=== PATIENT | male | born 1945 | race Caucasian/White ===

== ENCOUNTER 2019-03-17 15:59 | Inpatient (IN) | payer OTHER, BC ==
[~2019-03-17] VITALS: Ht 167.6 cm; Wt 70.8 kg
--- NOTE | 2019-03-17 15:59 | NUR ---
PATIENT BIBA TAKEN TO BED 10
--- NOTE | 2019-03-17 16:02 | NUR ---
DR. MEIER EVALUATING PATIENT AT BEDSIDE.
--- NOTE | 2019-03-17 16:16 | NUR ---
73M KAREN FROM [facility] C/O RESPIRATORY DISTRESS WITH ALTERED LEVEL OF CONCIOUSNESS, WARM TO TOUCH X TODAY. 80% SPO2 PRIOR TO ARRIVAL. PT BASELINE IS AOX1. UNRESPONSIVE AT PRESENTATION TO ED. EYE OPENING NONSPONTANEOUSLY. LABORED BREATHING, DIMINISHED LUNG SOUNDS. PT IS BEDBOUND. G-TUBE IN PLACE. PMH: SEE LIST MEDS: SEE LIST
--- NOTE | 2019-03-17 16:25 | NUR ---
RECIVED PT FROM EMR SOB DR MEIER AT BEDSIDE ORDERED BIPAP WITH SETTINGS CHARTED PLACED PT ON BIPAP PT BREAH SOUNDS PRESENT BILAT VERY DIMINISHEH WILL CONTINUE TO MONITOR PT
[2019-03-17] MEDS ORDERED: CEFEPIME 2,000 MG in DEXTROSE 5% 100 ML IV ONE (16:30)
[2019-03-17] MEDS ORDERED: VANCOMYCIN PER PHARMACY MC PRN ×2 (16:30→17:25)
[2019-03-17] MEDS ORDERED: ACETAMINOPHEN 650 MG SUPP RC ONE (16:30)
[2019-03-17] MEDS ORDERED: VANCOMYCIN 1GM/DEXT 5% PREMIX 200 ML IV ONE (16:30)
--- NOTE | 2019-03-17 16:32 | NUR ---
PER MACHINE LOAD CLERK POP SARMIENTO FOR GEOVANNY MEIER TO SIGN DNR
[2019-03-17] MEDS ORDERED: HYDROcodone/APAP 7.5/325 MG 1 TAB PO PRN (16:45)
[2019-03-17] MEDS ORDERED: ONDANSETRON 4 MG/2 ML VIAL IM/IVP PRN (16:45)
[2019-03-17] MEDS ORDERED: MORPHINE SULFATE 2 MG/ML SYR IVP PRN (16:45)
[2019-03-17] MEDS ORDERED: ACETAMINOPHEN 325 MG TAB PO PRN (16:45)
[2019-03-17] MEDS ORDERED: DOCUSATE SODIUM 100 MG GELCAP PO PRN (16:45)
--- NOTE | 2019-03-17 16:46 | NUR ---
LAB AT BEDSIDE DRAWING BLOOD CULTURE.
--- NOTE | 2019-03-17 16:55 | NUR ---
RT AT BEDSIDE
[2019-03-17] MEDS ORDERED: CEFEPIME 2,000 MG VIAL IV ONE (16:57)
[2019-03-17] MEDS ORDERED: VANCOMYCIN 1,000 MG VIAL ONE (16:57)
[2019-03-17] MEDS ORDERED: VANCOMYCIN 1,000 MG in DEXTROSE 5% 250 ML IV ONE (17:00)
[2019-03-17] MEDS ORDERED: VANCOMYCIN 1,000 MG in DEXTROSE 5% 250 ML IV SCH (17:00)
[2019-03-17 17:17] LABS: BASOPHILS % (AUTO) 0.2 % (0.0-2.0); EOSINOPHILS % (AUTO) 0.3 % (0.0-4.0); HEMATOCRIT 35.5 % (36-52); HEMOGLOBIN 11.4 g/dL (12.0-18.0); LYMPHOCYTES # (AUTO) 1.4 K/uL (2.0-11.5); LYMPHOCYTES % (AUTO) 10.1 % (20.5-51.1); MEAN CORPUSCULAR HEMOGLOBIN 29 pg (27-31); MEAN CORPUSCULAR HGB CONC 32 g/dL (33-37); MEAN CORPUSCULAR VOLUME 90.6 fL (80-94); MONOCYTES # (AUTO) 1.2 K/uL (0.8-1.0); MONOCYTES % (AUTO) 8.2 % (1.7-9.3); NEUTROPHILS # (AUTO) 11.6 K/uL (1.8-7.7); NEUTROPHILS % (AUTO) 81.2 % (42.2-75.2); PLATELET COUNT (AUTO) 118 K/uL (140-450); RED BLOOD CELL COUNT(AUTO) 3.92 MIL/uL (4.20-6.10); WHITE BLOOD COUNT (AUTO) 14.3 K/uL (4.8-10.8)
[2019-03-17 17:27] LABS: APPEARANCE,URINE CLEAR (CLEAR); BILIRUBIN,URINE NEGATIVE (NEGATIVE); BLOOD, URINE NEGATIVE (NEGATIVE); COLOR,URINE YELLOW (YELLOW); LEUKOCYTE ESTERASE ,URINE NEGATIVE (NEGATIVE); NITRITE, URINE NEGATIVE (NEGATIVE); UGLUCOSE NEGATIVE (NEGATIVE)
--- NOTE | 2019-03-17 17:39 | NUR ---
REPORT GIVEN TO ALEJANDRO WOLF FROM ICU. TRANSFER OF CARE AT THIS TIME. Addendum: 03/17/19 at 1812 by MEGAN ZOE.
[2019-03-17 17:41] LABS: PROTHROMBIN TIME 9.9 secs (10.8-13.4)
[2019-03-17 17:44] LABS: BARBITURATE, URINE NEG. ng/ml (NEG <=200); BENZODIAZEPINE, URINE NEG. ng/mL (NEG <=200); CANNABINOID, URINE NEG. ng/mL (NEG <=50); COCAINE, URINE NEG. ng/mL (NEG <=300); OPIATE, URINE NEG. ng/mL (NEG <=2000); PHENCYCLIDINE SCREEN,URINE NEG. ng/mL (NEG <=25)
[2019-03-17 17:45] LABS: ALBUMIN 3.1 g/dL (3.4-5.0); ANION GAP 10.4 (8-16); ASPARTATE AMINOTRANSFERASE 24 U/L (15-37); CHLORIDE 103 mmol/L (98-107); CREATININE 0.7 mg/dL (0.7-1.3); GLUCOSE 118 mg/dL (74-106); POTASSIUM 4.4 mmol/L (3.5-5.1); SODIUM SERUM 139 mmol/L (136-145); TOTAL BILIRUBIN 0.4 mg/dL (0.0-1.0); UREA NITROGEN, BLOOD 26 mg/dL (7-18)
[2019-03-17] MEDS ORDERED: ALBUTEROL SULFATE/IPRATROPIU 3 ML SOL IH PRN (17:45)
--- NOTE | 2019-03-17 17:47 | NUR ---
PATIENT TAKEN BY ICU NURSES
[2019-03-17] MEDS ORDERED: FERR325E14 GT (17:51)
[2019-03-17] MEDS ORDERED: CLON0.5T GT (17:51)
[2019-03-17] MEDS ORDERED: CLOP75TA26 GT (17:51)
[2019-03-17] MEDS ORDERED: CARB1TAB37 PO (17:51)
[2019-03-17] MEDS ORDERED: PANT40EC PO (17:51)
[2019-03-17] MEDS ORDERED: ATOR10TA GT (17:51)
[2019-03-17 17:58] LABS: FREE T4 (FREE THYROXINE) 1.36 ng/dL (0.76-1.46); MAGNESIUM 1.4 mg/dL (1.8-2.4); PHOSPHORUS 3.6 mg/dL (2.5-4.9)
[2019-03-17 18:00] VITALS: BP 160/23
[2019-03-17] MEDS ORDERED: Z-GUARD PASTE TP PRN (18:00)
[2019-03-17] MEDS ORDERED: methylPREDNISolone SS 125 MG/2 ML VIAL IVP SCH (18:15)
--- NOTE | 2019-03-17 18:16 | NUR ---
RECEIVED PATIENT FROM DOG AND CAT FOOD COOK, VANESSA, FOR CONTINUITY OF CARE. PATIENT IS AAOX1, ABLE TO FOLLOW SOME COMMANDS. PATIENT'S DAUGHTER IS AT BEDSIDE. SKIN IS INTACT, HAS PERIPHERAL IV SITE TO LEFT HAND, 18 GAUGE, AND RIGHT HAND, 20 GAUGE. PATIENT IS ON BIPAP, BREATHING EVEN AND UNLABORED. SR ON MONITOR, DENIES PAIN. HE HAS GT IN PLACE. HENDRICKS CATHETER IN PLACE. NO SIGNS OF DISTRESS NOTED, WILL CONTINUE TO MONITOR
[2019-03-17] MEDS: DEXT 5% / NACL 0.45% 1,000 ML IV SCH (18:28)
--- NOTE | 2019-03-17 19:05 | NUR ---
ENDORSED CONTINUITY OF CARE TO STENCIL CUTTER MACHINE RNRAMIN. NO SIGNS OF DISTRESS NOTED.
--- NOTE | 2019-03-17 19:20 | NUR ---
RECEIVED CHANGE OF SHIFT REPORT FROM AM NURSE. PATIENT IS ON STANDARD PRECAUTIONS. CODE STATUS IS DNR/DNI. ALLERGIC TO PENICILLIN AND RIPINIROLE. HE IS A/O X 1. CURRENTLY ON BIPAP WITH SETTINGS: FIO2 40%, EPAP 6, IPAP 14, RR 14, AND PIP 14. PERRL IS PRESENT WITH PUPILS BILATERAL SIZE 3MM. SKIN IS WARM AND DRY WITH NO EDEMA PRESENT, BUT WITH BRUISES NOTED ON BILATERAL HANDS AND BILATERAL LOWER ARMS. PULSES 2+ BILATERAL UPPER AND LOWER EXTREMITIES. LUNG SOUNDS HAVE DIMINISHED SOUNDS THROUGHOUT. NSR ON ASSIGNMENT EDITOR. S1 AND S2 SOUND PRESENT. PATIENT HAS RIGHT HAND PATENT 20 GAUGE IV LINE WITH SITE/DRESSING DRY AND INTACT. PATIENT ALSO HAS LEFT HAND PATENT 18 GAUGE IV LINE WITH SITE/DRESSING DRY AND INTACT. D5 1/2 NS CURRENTLY RUNNING AT 125 ML/H, AND VANCOMYCIN RUNNING AT 165 ML/H. PATIENT HAS G TUBE IN PLACE WITH 10ML GASTRIC RESIDUALS AT THIS TIME, AND TUBE IS PATENT AND POSITIVE FOR PLACEMENT. CURRENTLY PATIENT IS NPO EXCEPT FOR MEDS. HENDRICKS CATHETER IN PLACE AND URINE IS DARK YELLOW AND CLEAR, WITH NO BOWEL MOVEMENT NOTED AT THIS TIME. BED LEFT IN LOW SEMI FOWLERS POSITION, SIDE RAILS UPX2 WITH CALL LIGHT WITHIN REACH. WILL CONTINUE TO MONITOR.
--- NOTE | 2019-03-17 19:32 | NUR ---
SPOKE WITH ALAN AND TONIO IN LAB TO FOLLOW UP PENDING LACTIC ACID, AMMONIA, T4 HGBA1C RESULTS, NO LAB RESULTS @ THIS TIME, ALAN STATED AWAITING TESTS TO BE RAN THROUGH. WILL FOLLOW UP LATER THIS PM.
[2019-03-17] MEDS: BUDESONIDE 0.5 MG/2 ML NEBU INH SCH (19:33)
[2019-03-17] MEDS: ALBUTEROL SULFATE/IPRATROPIU 3 ML SOL IH SCH (19:33)
--- NOTE | 2019-03-17 19:38 | NUR ---
RCV'D PT ON BIPAP. PT IS AWAKE AND ALERT TO NAME. CHARGE NURSE SARATH AT BEDSIDE. TOOK BIPAP OFF. PT'S SPO2 ON ROOM AIR IS 97-99%. DIMINISHED CLEAR BREATH SOUNDS. HHN TX GIVEN WITH NO ADVERSE REACTION. FAMILY AT BEDSIDE. NOTIFIED MD HARGROVE THAT PT DOES NOT NEED BIPAP AT THIS TIME. MD HARGROVE AGREED AND SWITCHED BIPAP ORDER TO PRN. RN AGREES WELL. NO SOB OR DISTRESS NOTED. WILL CONTINUE TO MONITOR.
[2019-03-17 20:00] VITALS: BP 171/91
--- NOTE | 2019-03-17 20:13 | NUR ---
GAVE SCHEDULED MEDS, REPOSITIONED PATIENT, AND ASSESSED FOR PAIN - CURRENTLY FLACC 5 WITH HR AND BP ELEVATED (WILL GIVE NORCO PRN PRESCRIBED FOR PAIN). DAUGHTER AT BEDSIDE RIGHT NOW. WILL CONTINUE TO MONITOR
[2019-03-17] MEDS ORDERED: ATORVASTATIN 20 MG TAB GT SCH (21:00)
[2019-03-17 21:49] LABS: THYROID STIMULATING HORMONE 2.55 uIU/mL (0.34-3.74)
[2019-03-17 22:00] VITALS: BP 132/74
--- NOTE | 2019-03-17 22:15 | NUR ---
CHANGED PATIENT'S LINENS, CLEANED HIM (SPONGE BATH) AND TOOK PICTURES OF SKIN ALTERATIONS AND PERFORMED WOUND CARE. PATIENT TOLERATED CARE WELL. WILL CONTINUE TO MONITOR,
[2019-03-18] VITALS: BP 151/66
--- NOTE | 2019-03-18 00:50 | NUR ---
TRANSFERRED PATIENT TO TELEMETRY PER ORDERS. ENDORSED CONTINUITY OF CARE TO RN BELLE.
--- NOTE | 2019-03-18 00:51 | NUR ---
Received endorsement from HELMET HAT BRIM CUTTER for continuity of care. Patient asleep; updated board. Patient vitals stable upon admission into unit. IV site intact running IVF at 126mL/hr. Skin non-intact; bruises noted on right upper extremity and wound on intergluteal fold. Verdugo in place. G-tube in place. Bed in the lowest position, call light within reach. Initial assessment done. Will continue to monitor.
[2019-03-18] MEDS: DEXT 5% / NACL 0.45% 1,000 ML IV SCH ×3 (02:21→17:40)
--- NOTE | 2019-03-18 02:37 | NUR ---
Rounds done; patient asleep on right lateral side, visible chest rise and fall noted, snoring.
[2019-03-18 04:00] VITALS: BP 115/55
--- NOTE | 2019-03-18 04:25 | NUR ---
Vitals taken, no SOB or distress noted.
[2019-03-18 06:07] LABS: T4 (THYROXINE) 7.7 ug/dL (4.5-12.0)
--- NOTE | 2019-03-18 06:30 | NUR ---
Vitals taken, due meds given. Will endorse to AM shift RN for continuity of care.
[2019-03-18 06:51] LABS: HEMATOCRIT 34.8 % (36-52); HEMOGLOBIN 11.2 g/dL (12.0-18.0); LYMPHOCYTES # (AUTO) 0.8 K/uL (2.0-11.5); LYMPHOCYTES % (AUTO) 6.1 % (20.5-51.1); MEAN CORPUSCULAR HEMOGLOBIN 29 pg (27-31); MEAN CORPUSCULAR HGB CONC 32 g/dL (33-37); MEAN CORPUSCULAR VOLUME 90.8 fL (80-94); MONOCYTES # (AUTO) 0.4 K/uL (0.8-1.0); NEUTROPHILS # (AUTO) 11.7 K/uL (1.8-7.7); NEUTROPHILS % (AUTO) 90.9 % (42.2-75.2); PLATELET COUNT (AUTO) 123 K/uL (140-450); RED BLOOD CELL COUNT(AUTO) 3.83 MIL/uL (4.20-6.10); RED CELL DISTRIBUTION WIDTH 13.3 % (11.6-13.7); WHITE BLOOD COUNT (AUTO) 12.9 K/uL (4.8-10.8)
[2019-03-18] MEDS: ALBUTEROL SULFATE/IPRATROPIU 3 ML SOL IH SCH ×3 (06:59→19:33)
[2019-03-18] MEDS: BUDESONIDE 0.5 MG/2 ML NEBU INH SCH ×2 (06:59→19:33)
[2019-03-18 07:17] LABS: ANION GAP 12.7 (8-16); CARBON DIOXIDE 26.4 mmol/L (21-32); CHLORIDE 108 mmol/L (98-107); CREATININE 0.8 mg/dL (0.7-1.3); GLUCOSE 124 mg/dL (74-106); POTASSIUM 4.1 mmol/L (3.5-5.1); SODIUM SERUM 143 mmol/L (136-145); UREA NITROGEN, BLOOD 18 mg/dL (7-18)
[2019-03-18 07:22] LABS: MAGNESIUM 1.6 mg/dL (1.8-2.4); PHOSPHORUS 2.8 mg/dL (2.5-4.9)
[2019-03-18 07:59] VITALS: BP 132/69
--- NOTE | 2019-03-18 08:10 | NUR ---
PATIENT HAS BEEN SCREENED AND CATEGORIZED HIGH NUTRITION RISK. PATIENT WILL BE SEEN WITHIN 1-2 DAYS OF ADMISSION. 03/18/19-03/19/[address]
--- NOTE | 2019-03-18 08:45 | NUR ---
PT PULLED OUT IV ACCESS. STOPPED BLEEDING, PRESSURE APPLIED. WILL CONTINUE TO MONITOR.
[2019-03-18] MEDS ORDERED: PIPERACILLIN/TAZOBACTAM 3.375 GM in DEXTROSE 5% 50 ML IV SCH (08:46)
[2019-03-18] MEDS ORDERED: MAG SULF 2000 MG/WATER PREMIX 50 ML IV SCH (09:00)
[2019-03-18] MEDS ORDERED: CLOPIDOGREL BISULFATE 75 MG GT SCH (09:00)
[2019-03-18] MEDS ORDERED: PANTOPRAZOLE 40 MG TABEC PO SCH (09:00)
[2019-03-18] MEDS: methylPREDNISolone SS 125 MG/2 ML VIAL IVP SCH ×2 (09:00→20:52)
[2019-03-18] MEDS: LANSOPRAZOLE 30 MG CAPDR GT SCH (09:11)
[2019-03-18] MEDS: CLOPIDOGREL 75 MG TAB GT SCH (09:11)
[2019-03-18] MEDS: FERROUS SULFATE 300 MG/5 ML UDC GT SCH (09:11)
[2019-03-18] MEDS ORDERED: VANCOMYCIN 1,000 MG in DEXTROSE 5% 250 ML IV SCH (11:00)
--- NOTE | 2019-03-18 11:16 | NUR ---
STARTED IV ON RIGHT FOREARM 18G, GOOD BLOOD RETURN, FLUSHES WELL. APPLIED LEFT SOFT WRIST RESTRAINT DUE TO PT TRYING TO PULL OUT HIS IV AND HENDRICKS. ORDER IN PLACE.
[2019-03-18] MEDS: CARBIDOPA/LEVODOPA 25/100 MG 1 TAB PO SCH ×3 (12:12→20:51)
[2019-03-18 12:46] VITALS: BP 137/72
--- NOTE | 2019-03-18 13:47 | NUR ---
*S.T. Bedside swallow eval completed* See report for details. Pt presents w/ profound oropharyngeal dysphagia characterized by multiple s/s aspiration including, oral bolus holding, lingual pumping with multiple attempts to swallow but without a successful pharyngeal swallow response. Pt also demo'd wet voice w/ swallow attempts, coughing and watery eyes. Pt is at very high risk for aspiration. Recommend: 1) Continue NPO w/ non-oral means of nutrition, hydration and meds. 2) G-tube feeding as ordered by medicine team. Pt has been long been NPO per family report and therefore does not present with good rehab potential. Further tx not indicated. DC to [facility]. Endorsed to ALEJANDRO Cunningham. Time [id number]
--- NOTE | 2019-03-18 14:11 | NUR ---
03/18/19 RD INITIAL ASSESSMENT COMPLETED PLEASE REFER TO NUTRITION ASSESSMENT UNDER CARE ACTIVITY FOR ESTIMATED NUTRITIONAL NEEDS. 1. RECOMMEND OSMOLITE 1.5 @ 55 ML/HR X 24 HOURS WITH PROSOURCE BID WHEN MEDICALLY STABLE. START AT 15 ML/HR AND ADVANCE BY 20 ML/HR Q4H -THIS WILL PROVIDE 2100 KCAL, 112 GM OF PROTEIN WHICH MEETS 100% OF ESTIMATED NEEDS 2. RECOMMEND FREE WATER FLUSH OF [address] TO FOLLOW-UP 2-3 DAYS, HIGH RISK JORDAN BAZZI RD
[2019-03-18] MEDS: clonazePAM 0.5 MG TAB GT SCH (16:29)
--- NOTE | 2019-03-18 17:00 | NUR ---
REMOVED HENDRICKS CATHETER PER MD ORDER. PT TOLERATED PROCEDURE WELL. TIP INTACT. 125CC HEMATURIA WITH SOME BLOOD CLOTS FOUND. NOTIFIED ABOUT HEMATURIA EARLIER. HUNG G TUBE FEEDING OSMOLITE RUNNING AT 10CC/HR TO ASSESS IF PT TOLERATES FEEDING. WILL CONTINUE TO MONITOR.
[2019-03-18 17:23] VITALS: BP 135/65
--- NOTE | 2019-03-18 19:13 | NUR ---
GAVE BED SIDE REPORT TO MELTER SUPERVISOR OPEN HEARTH FURNACE RN. PT STABLE.
--- NOTE | 2019-03-18 19:14 | NUR ---
RECEIVED BEDSIDE REPORT FROM DAY SHIFT NURSE NO S/S OF SOB NOTED ON ROOM AIR. IV TO RFA 18G PATEN, INTACT, AND ASYMPTOMATIC. GTUBE IN PLACE. BOARD UPDATED. ALL SAFETY PRECAUTION MET, CALL LIGHT WITHIN REACH, WILL CONTINUE TO MONITOR.
[2019-03-18 20:00] VITALS: BP 119/59
[2019-03-18] MEDS: ATORVASTATIN 20 MG TAB GT SCH (20:51)
[2019-03-18] MEDS: PIPERACILLIN/TAZOBACTAM 3.375 GM in DEXTROSE 5% 50 ML IV SCH (21:03)
--- NOTE | 2019-03-18 21:09 | NUR ---
ADMINISTERED LIPITOR, ZOSYN, SOLU-MEDROL, SINEMET, AND HEPARIN MD ORDERED. PT TOLERATED WELL. Addendum: 03/19/19 at 0652 by Elma Hess RN 0ML RESIDUAL NOTED.
--- NOTE | 2019-03-18 22:00 | NUR ---
SUCTION PROVIDED. PT TOLERATED WELL. WILL CONTINUE TO MONITOR.
--- NOTE | 2019-03-18 22:30 | NUR ---
SUCTION PROVIDED. PT TOLERATED WELL. WILL CONTINUE TO MONITOR.
[2019-03-19] VITALS: BP 137/68
--- NOTE | 2019-03-19 00:10 | NUR ---
VS CHECKED, WITHIN PT'S BASELINE. BED IN LOW POSITION. WILL CONTINUE TO MONITOR.
[2019-03-19] MEDS: DEXT 5% / NACL 0.45% 1,000 ML IV SCH (02:18)
--- NOTE | 2019-03-19 02:55 | NUR ---
PT SLEEPING IN BED. NO ACUTE DISTRESS NOTED.
[2019-03-19 04:00] VITALS: BP 141/66
[2019-03-19] MEDS: PIPERACILLIN/TAZOBACTAM 3.375 GM in DEXTROSE 5% 50 ML IV SCH ×3 (05:13→21:08)
--- NOTE | 2019-03-19 05:13 | NUR ---
GIVEN ZOSYN MD ORDERED. PT TOLERATED WELL. WILL CONTINUE TO MONITOR.
[2019-03-19 05:14] LABS: MAGNESIUM 1.9 mg/dL (1.8-2.4); PHOSPHORUS 2.7 mg/dL (2.5-4.9)
[2019-03-19 05:36] LABS: ANION GAP 10.2 (8-16); CARBON DIOXIDE 26.8 mmol/L (21-32); CHLORIDE 108 mmol/L (98-107); CREATININE 0.9 mg/dL (0.7-1.3); GLUCOSE 182 mg/dL (74-106); SODIUM SERUM 141 mmol/L (136-145); UREA NITROGEN, BLOOD 24 mg/dL (7-18)
[2019-03-19 05:40] LABS: BASOPHILS % (AUTO) 0.1 % (0.0-2.0); HEMATOCRIT 29.7 % (36-52); HEMOGLOBIN 9.5 g/dL (12.0-18.0); LYMPHOCYTES # (AUTO) 1.1 K/uL (2.0-11.5); LYMPHOCYTES % (AUTO) 7.5 % (20.5-51.1); MEAN CORPUSCULAR HEMOGLOBIN 29 pg (27-31); MEAN CORPUSCULAR HGB CONC 32 g/dL (33-37); MEAN CORPUSCULAR VOLUME 90.6 fL (80-94); MONOCYTES # (AUTO) 0.4 K/uL (0.8-1.0); MONOCYTES % (AUTO) 2.9 % (1.7-9.3); NEUTROPHILS # (AUTO) 13.1 K/uL (1.8-7.7); NEUTROPHILS % (AUTO) 89.5 % (42.2-75.2); PLATELET COUNT (AUTO) 125 K/uL (140-450); RED BLOOD CELL COUNT(AUTO) 3.27 MIL/uL (4.20-6.10); RED CELL DISTRIBUTION WIDTH 13.2 % (11.6-13.7)
[2019-03-19 06:49] LABS: WHITE BLOOD COUNT (AUTO) 14.7 K/uL (4.8-10.8)
--- NOTE | 2019-03-19 06:51 | NUR ---
PT SLEEPING IN BED. NO ACUTE DISTRESS NOTED. 0ML RESIDUAL NOTED.
--- NOTE | 2019-03-19 07:15 | NUR ---
RECEIVED BEDSIDE REPORT FROM GENERAL FARMWORKER NURSE FOR CONTINUITY OF CARE. PATIENT SLEEPING COMFORTABLY, NO S/S OF SOB NOTED ON ROOM AIR. FLACC-0. IV TO RFA 18G PATENT, INTACT, AND ASYMPTOMATIC, INFUSING IVF WELL. GTUBE IN PLACE WITH TUBE FEEDING RUNNING WELL. BOARD UPDATED. ALL SAFETY PRECAUTION MET, BED IN LOWEST POSITION, WITH BREAKS AND ALARM ON, CALL LIGHT WITHIN REACH, WILL CONTINUE TO MONITOR.
--- NOTE | 2019-03-19 07:43 | NUR ---
DAUGHTER MADELEINE AND SON ANTHONY AT BEDSIDE. REQUESTED TO SPEAK TO DOCTOR. DR. WHEELER INFORMED. DR. WHEELER IN TO SPEAK TO PATIENT'S FAMILY.
[2019-03-19] MEDS: ALBUTEROL SULFATE/IPRATROPIU 3 ML SOL IH SCH ×3 (07:47→19:26)
[2019-03-19] MEDS: BUDESONIDE 0.5 MG/2 ML NEBU INH SCH ×2 (07:47→19:26)
[2019-03-19 08:00] VITALS: BP 126/59
--- NOTE | 2019-03-19 08:05 | NUR ---
PATIENT GIVEN ORAL CARE AND SUCTIONED. THICK SECRETIONS NOTED. SAFETY PRECAUTIONS IN PLACE, BED IN LOWEST POSITION WITH ALARM ON, CALL LIGHT WITHIN REACH, WILL CONTINUE TO MONITOR PATIENT.
[2019-03-19] MEDS: NACL 0.9% 1,000 ML IV SCH (09:27)
[2019-03-19] MEDS: CLOPIDOGREL 75 MG TAB GT SCH (09:28)
[2019-03-19] MEDS: FERROUS SULFATE 300 MG/5 ML UDC GT SCH (09:29)
[2019-03-19] MEDS: LANSOPRAZOLE 30 MG CAPDR GT SCH (09:29)
[2019-03-19] MEDS: CARBIDOPA/LEVODOPA 25/100 MG 1 TAB PO SCH (09:29)
[2019-03-19] MEDS: methylPREDNISolone SS 40 MG/ML VIAL IVP SCH ×2 (09:29→21:08)
--- NOTE | 2019-03-19 09:30 | NUR ---
ORDERED MEDICATIONS GIVEN VIA GTUBE. GTUBE ASCULTATED FOR PLACEMENT, 0 ML OF RESIDUAL NOTED. MEDICATION GIVEN AND FLUSHED WITH 120 ML OF WATER. PATIENT TOLERATED THEM WELL. PATIENT CURRENTLY OFF RESTRAINTS. PATIENT VOIDED. PATIENT CLEANED UP AND REPOSITIONED FOR COMFORT AND TO OFFLOAD PRESSURE AREAS. PATIENT GIVEN ORAL CARE AND SUCTIONED. THICK SECRETIONS NOTED. SAFETY PRECAUTIONS IN PLACE, BED IN LOWEST POSITION WITH ALARM ON, CALL LIGHT WITHIN REACH, WILL CONTINUE TO MONITOR PATIENT.
[2019-03-19] MEDS ORDERED: ACETAMINOPHEN 650 MG/20.3 ML UDC GT PRN (10:04)
[2019-03-19] MEDS ORDERED: ACETAMINOPHEN 650 MG/20.3 ML UDC NG PRN (10:04)
[2019-03-19] MEDS ORDERED: DOCUSATE 100 MG/10 ML UDC GT PRN (10:04)
[2019-03-19] MEDS ORDERED: HYDROcodone/APAP 7.5/325 MG 1 TAB GT PRN (10:05)
--- NOTE | 2019-03-19 10:15 | NUR ---
PATIENT GIVEN ORAL CARE AND SUCTIONED. THICK SECRETIONS NOTED. PATIENT REPOSITIONED FOR COMFORT AND TO OFFLOAD PRESSURE AREAS. SAFETY PRECAUTIONS IN PLACE, BED IN LOWEST POSITION WITH ALARM ON, CALL LIGHT WITHIN REACH, WILL CONTINUE TO MONITOR PATIENT.
[2019-03-19 12:00] VITALS: BP 122/77
[2019-03-19] MEDS: CARBIDOPA/LEVODOPA 25/100 MG 1 TAB GT SCH ×3 (12:26→21:08)
--- NOTE | 2019-03-19 12:27 | NUR ---
ORDERED MEDICATIONS GIVEN VIA GTUBE. GTUBE ASCULTATED FOR PLACEMENT, 0 ML OF RESIDUAL NOTED. MEDICATION GIVEN AND FLUSHED WITH 120 ML OF WATER. PATIENT TOLERATED THEM WELL. PATIENT VOIDED. PATIENT CLEANED UP AND REPOSITIONED FOR COMFORT AND TO OFFLOAD PRESSURE AREAS. ZGUARD APPLIED ORDERED. PATIENT GIVEN ORAL CARE AND SUCTIONED. THICK SECRETIONS NOTED. SAFETY PRECAUTIONS IN PLACE, BED IN LOWEST POSITION WITH ALARM ON, CALL LIGHT WITHIN REACH, WILL CONTINUE TO MONITOR PATIENT.
--- NOTE | 2019-03-19 14:13 | NUR ---
PATIENT GIVEN ORAL CARE AND SUCTIONED. THICK SECRETIONS NOTED. PATIENT TOLERATED IT. ALL NEEDS MET. PATIENT VOIDED AND HAD SMALL BM SMEAR, PATIENT CLEANED UP PATIENT REPOSITIONED FOR COMFORT AND TO OFFLOAD PRESSURE AREAS. SAFETY PRECAUTIONS IN PLACE, BED IN LOWEST POSITION WITH ALARM ON, CALL LIGHT WITHIN REACH, WILL CONTINUE TO MONITOR PATIENT.
[2019-03-19 15:43] VITALS: BP 134/73
[2019-03-19] MEDS: clonazePAM 0.5 MG TAB GT SCH (16:25)
--- NOTE | 2019-03-19 16:25 | NUR ---
NEW TUBE FEEDING STARTED. ORDERED MEDICATIONS GIVEN VIA GTUBE. GTUBE AUSCULTATED FOR PLACEMENT, 0 ML OF RESIDUAL NOTED. MEDICATION GIVEN AND FLUSHED WITH 180 ML OF WATER. PATIENT TOLERATED THEM WELL. PATIENT VOIDED. PATIENT CLEANED UP AND REPOSITIONED FOR COMFORT AND TO OFFLOAD PRESSURE AREAS. ZGUARD APPLIED ORDERED. PATIENT GIVEN ORAL CARE AND SUCTIONED. THICK SECRETIONS NOTED. SAFETY PRECAUTIONS IN PLACE, BED IN LOWEST POSITION WITH ALARM ON, CALL LIGHT WITHIN REACH, WILL CONTINUE TO MONITOR PATIENT.
--- NOTE | 2019-03-19 16:32 | NUR ---
Chief Operator Hydroformer Note: I faxed patient's medical information to both [facility] and [facility].
--- NOTE | 2019-03-19 17:55 | NUR ---
PATIENT REPOSITIONED FOR COMFORT AND TO OFFLOAD PRESSURE AREAS. PATIENT SUCTIONED. THICK SECRETIONS NOTED. SAFETY PRECAUTIONS IN PLACE, BED IN LOWEST POSITION WITH ALARM ON, CALL LIGHT WITHIN REACH, WILL CONTINUE TO MONITOR PATIENT.
--- NOTE | 2019-03-19 19:10 | NUR ---
REPORT GIVEN TO SILK OPENER NURSE AT BEDSIDE FOR CONTINUITY OF CARE. PATIENT SLEEPING, IN STABLE CONDITION.
--- NOTE | 2019-03-19 19:11 | NUR ---
RECEIVED BEDSIDE REPORT FROM DAY SHIFT NURSE FOR CONTINUITY OF CARE. NO S/S OF SOB NOTED ON ROOM AIR. FLACC-0. IV TO RFA 18G PATENT, INTACT, AND ASYMPTOMATIC, INFUSING IVF WELL. G-TUBE IN PLACE WITH TUBE FEEDING RUNNING WELL. BOARD UPDATED. ALL SAFETY PRECAUTION MET, BED IN LOWEST POSITION, CALL LIGHT WITHIN REACH, WILL CONTINUE TO MONITOR.
[2019-03-19 20:00] VITALS: BP 92/59
[2019-03-19] MEDS: ATORVASTATIN 20 MG TAB GT SCH (21:08)
--- NOTE | 2019-03-19 21:18 | NUR ---
ADMINISTERED LIPITOR, SINEMET, ZOSYN, SOLU-MEDROL, AND HEPARIN MD ORDERED. PT TOLERATED WELL. Addendum: 03/20/19 at 0301 by Elma Hess RN 0 RESIDUAL NOTED
--- NOTE | 2019-03-19 23:58 | NUR ---
VS CHECKED, WITHIN PT'S BASELINE. WILL CONTINUE TO MONITOR.
[2019-03-20] VITALS: BP 128/64
--- NOTE | 2019-03-20 02:45 | NUR ---
PT SLEEPING IN BED. BREATHING EVEN AND UNLABORED. BED IN LOW POSITION, WILL CONTINUE TO MONITOR.
[2019-03-20 04:00] VITALS: BP 158/81
[2019-03-20] MEDS: NACL 0.9% 1,000 ML IV SCH (04:15)
[2019-03-20] MEDS: PIPERACILLIN/TAZOBACTAM 3.375 GM in DEXTROSE 5% 50 ML IV SCH ×3 (05:00→22:16)
--- NOTE | 2019-03-20 05:00 | NUR ---
GIVEN ZOSYN MD ORDERED. PT TOLERATED WELL.
--- NOTE | 2019-03-20 06:50 | NUR ---
PT SLEEPING IN BED. NO ACUTE DISTRESS NOTED.
[2019-03-20] MEDS: ALBUTEROL SULFATE/IPRATROPIU 3 ML SOL IH SCH ×3 (06:54→19:51)
[2019-03-20] MEDS: BUDESONIDE 0.5 MG/2 ML NEBU INH SCH ×2 (06:55→19:51)
--- NOTE | 2019-03-20 07:09 | NUR ---
RECEIVED BEDSIDE REPORT FROM BEEF BREAKER NURSE FOR CONTINUITY OF CARE. PATIENT CURRENTLY GETTING BREATHING TREATMENT, NO S/S OF SOB NOTED ON ROOM AIR. FLACC-0. IV TO RFA 18G PATENT, INTACT, AND ASYMPTOMATIC, INFUSING IVF WELL. GTUBE IN PLACE WITH TUBE FEEDING RUNNING WELL. BOARD UPDATED. PATIENT IS ST ON TELE MONITOR. ALL SAFETY PRECAUTION MET, BED IN LOWEST POSITION, WITH BREAKS AND ALARM ON, CALL LIGHT WITHIN REACH, WILL CONTINUE TO MONITOR.
--- NOTE | 2019-03-20 07:45 | NUR ---
PATIENT VOIDED AND HAD SMALL BM SMEAR. , PATIENT CLEANED AND CHANGED, LINENS CHANGED. PATIENT REPOSITIONED FOR COMFORT AND TO OFFLOAD PRESSURE AREAS. PATIENT TOLERATED POSITION CHANGE. SAFETY AND ASPIRATION PRECAUTIONS IN PLACE, BED IN LOWEST POSITION WITH BRAKES AND ALARM ON, CALL LIGHT WITHIN REACH, WILL CONTINUE TO MONITOR PATIENT.
[2019-03-20 08:00] VITALS: BP 139/75
[2019-03-20 08:43] LABS: ANION GAP 11.4 (8-16); CARBON DIOXIDE 26.2 mmol/L (21-32); CHLORIDE 108 mmol/L (98-107); CREATININE 0.8 mg/dL (0.7-1.3); GLUCOSE 125 mg/dL (74-106); POTASSIUM 3.6 mmol/L (3.5-5.1); SODIUM SERUM 142 mmol/L (136-145); UREA NITROGEN, BLOOD 27 mg/dL (7-18)
[2019-03-20] MEDS: CARBIDOPA/LEVODOPA 25/100 MG 1 TAB GT SCH ×4 (09:19→22:17)
[2019-03-20] MEDS: CLOPIDOGREL 75 MG TAB GT SCH (09:20)
[2019-03-20] MEDS: FERROUS SULFATE 300 MG/5 ML UDC GT SCH (09:21)
[2019-03-20] MEDS: LANSOPRAZOLE 30 MG CAPDR GT SCH (09:23)
[2019-03-20] MEDS: methylPREDNISolone SS 40 MG/ML VIAL IVP SCH ×2 (09:34→22:17)
--- NOTE | 2019-03-20 09:35 | NUR ---
ORDERED MEDICATIONS GIVEN VIA GTUBE. GTUBE ASCULTATED FOR PLACEMENT, 5 ML OF RESIDUAL NOTED. MEDICATION GIVEN AND FLUSHED WITH 60 ML OF WATER. PATIENT TOLERATED THEM WELL. PATIENT GIVEN ORAL CARE AND SUCTIONED. THICK SECRETIONS NOTED. SAFETY PRECAUTIONS IN PLACE, BED IN LOWEST POSITION WITH ALARM ON, CALL LIGHT WITHIN REACH, WILL CONTINUE TO MONITOR PATIENT.
[2019-03-20 09:58] LABS: MAGNESIUM 1.7 mg/dL (1.8-2.4); PHOSPHORUS 2.9 mg/dL (2.5-4.9)
--- NOTE | 2019-03-20 11:12 | NUR ---
DAUGHTER MADELEINE AT BEDSIDE. UPDATED HER WITH PATIENT'S STATUS AND PLAN OF CARE, SHE VERBALIZED UNDERSTANDING. WILL CONTINUE TO MONITOR PATIENT.
--- NOTE | 2019-03-20 11:44 | NUR ---
DR WHEELER IN TO SPEAK WITH PATIENT AND DAUGHTER MADELEINE.
[2019-03-20 12:00] VITALS: BP 159/78
--- NOTE | 2019-03-20 12:05 | NUR ---
PATIENT VOIDED. PATIENT CLEANED AND CHANGED. PATIENT REPOSITIONED FOR COMFORT AND TO OFFLOAD PRESSURE AREAS. SAFETY PRECAUTIONS IN PLACE, BED IN LOWEST POSITION WITH ALARM ON, CALL LIGHT WITHIN REACH, WILL CONTINUE TO MONITOR PATIENT.
--- NOTE | 2019-03-20 12:21 | NUR ---
ORDERED MEDICATION GIVEN. PATIENT TOLERATED IT WELL. PATIENT GIVEN ORAL CARE AND SUCTIONED. SECRETIONS NOTED. SAFETY PRECAUTIONS IN PLACE, BED IN LOWEST POSITION WITH ALARM ON, CALL LIGHT WITHIN REACH, WILL CONTINUE TO MONITOR PATIENT.
[2019-03-20] MEDS: FLUCONAZOLE 200 MG/NS PREMIX 100 ML IV SCH (13:05)
[2019-03-20 13:32] LABS: BASOPHILS % (AUTO) 0.1 % (0.0-2.0); EOSINOPHILS % (AUTO) 0.1 % (0.0-4.0); HEMATOCRIT 32.7 % (36-52); HEMOGLOBIN 10.5 g/dL (12.0-18.0); LYMPHOCYTES # (AUTO) 0.9 K/uL (2.0-11.5); LYMPHOCYTES % (AUTO) 6.8 % (20.5-51.1); MEAN CORPUSCULAR HEMOGLOBIN 29 pg (27-31); MEAN CORPUSCULAR HGB CONC 32 g/dL (33-37); MEAN CORPUSCULAR VOLUME 90.8 fL (80-94); MONOCYTES # (AUTO) 0.5 K/uL (0.8-1.0); MONOCYTES % (AUTO) 3.6 % (1.7-9.3); NEUTROPHILS # (AUTO) 11.5 K/uL (1.8-7.7); NEUTROPHILS % (AUTO) 89.4 % (42.2-75.2); PLATELET COUNT (AUTO) 143 K/uL (140-450); RED CELL DISTRIBUTION WIDTH 13.4 % (11.6-13.7); WHITE BLOOD COUNT (AUTO) 12.9 K/uL (4.8-10.8)
[2019-03-20 13:48] LABS: CARBON DIOXIDE 28.2 mmol/L (21-32); CHLORIDE 108 mmol/L (98-107); CREATININE 0.8 mg/dL (0.7-1.3); GLUCOSE 161 mg/dL (74-106); POTASSIUM 4.2 mmol/L (3.5-5.1); SODIUM SERUM 143 mmol/L (136-145); UREA NITROGEN, BLOOD 27 mg/dL (7-18)
--- NOTE | 2019-03-20 13:51 | NUR ---
ORDERED MEDICATIONS GIVEN VIA GTUBE. 0ML OF RESIDUAL NOTED. MEDICATION GIVEN AND FLUSHED WITH 60 ML OF WATER. PATIENT TOLERATED THEM WELL. PATIENT GIVEN ORAL CARE AND SUCTIONED. THIN SECRETIONS NOTED. SAFETY PRECAUTIONS IN PLACE, BED IN LOWEST POSITION WITH ALARM ON, CALL LIGHT WITHIN REACH, WILL CONTINUE TO MONITOR PATIENT.
--- NOTE | 2019-03-20 15:01 | NUR ---
DAUGHTER AT BEDSIDE. PATIENT RESTING IN BED, ALL NEEDS MET, NO COMPLAINTS AT THIS TIME. SAFETY AND ASPIRATION PRECAUTIONS IN PLACE, CALL LIGHT WITHIN REACH, WILL CONTINUE TO MONITOR PATIENT.
[2019-03-20 16:00] VITALS: BP 158/90
--- NOTE | 2019-03-20 16:01 | NUR ---
NEW TUBE FEEDING STARTED. PATIENT TOLERATING IT WELL. 5 ML OF RESIDUAL NOTED. SAFETY AND ASPIRATION PRECAUTIONS IN PLACE, CALL LIGHT WITHIN REACH, BED IN LOWEST POSITION, WILL CONTINUE TO MONITOR PATIENT.
--- NOTE | 2019-03-20 16:23 | NUR ---
ORDERED MEDICATION GIVEN VIA GTUBE WITH 80 ML OF WATER. PATIENT TOLERATED IT WELL. PATIENT GIVEN ORAL CARE AND SUCTIONED. SECRETIONS NOTED. SAFETY PRECAUTIONS IN PLACE, BED IN LOWEST POSITION WITH ALARM ON, CALL LIGHT WITHIN REACH, WILL CONTINUE TO MONITOR PATIENT.
[2019-03-20] MEDS: clonazePAM 0.5 MG TAB GT SCH (16:24)
[2019-03-20] MEDS ORDERED: MAG SULF 2000 MG/WATER PREMIX 50 ML IV SCH (16:30)
--- NOTE | 2019-03-20 18:20 | NUR ---
PATIENT RESTING IN BED WITH EYES CLOSED, FLACC-0. NO COMPLAINTS AT THIS TIME. SAFETY AND ASPIRATION PRECAUTIONS IN PLACE, CALL LIGHT WITHIN REACH, WILL CONTINUE TO MONITOR PATIENT AND ENDORSE TO LEATHER BELT SHAPER NURSE.
--- NOTE | 2019-03-20 19:00 | NUR ---
RECEIVED PT FROM PHILL RN PT AAOX1 FOLLOW SIMPLE COMMANDS IV ON RT FA INFUSING WELL ON TELEMETRY SR PT BRUISES O;N BILATERAL UPPER EXTREMITIES, PT ON BILATERAL SOFT WRIST RESTRAINT PT RESTLESSNESS TRYING TO REMOVE IV AND IV TUBENING INITIAL ASSESSMENT DONE
[2019-03-20 20:00] VITALS: BP 158/84
--- NOTE | 2019-03-20 22:00 | NUR ---
PT REPOSITIONED Q2H ON TELEMETRY ;, ON BILATERAL SOFT WRIST RESTRAINT ORDER
[2019-03-20] MEDS: ATORVASTATIN 20 MG TAB GT SCH (22:18)
[2019-03-21] VITALS: BP 159/84
[2019-03-21] MEDS: NACL 0.9% 1,000 ML IV SCH (00:15)
--- NOTE | 2019-03-21 01:00 | NUR ---
PT IS SUCTIONED NECESSARY , REPOSITIONED ON TELEMETRY SR ONBILATERAL SOFT WRIST RESTRAINT
--- NOTE | 2019-03-21 03:00 | NUR ---
SPONGE BATH GIVEN LINEN CHANGED ON TELEMETRY SR IV ON RT FA INFUSING WELL
[2019-03-21 04:00] VITALS: BP 124/94
[2019-03-21] MEDS: PIPERACILLIN/TAZOBACTAM 3.375 GM in DEXTROSE 5% 50 ML IV SCH ×2 (05:39→14:19)
--- NOTE | 2019-03-21 05:56 | NUR ---
PT REPOSITIONED Q2HON BILATERAL SOFT WRIST RESTRAINT , PT HAS A PRODUCTILVE COUGH AND HE IS SUCTIONED NECESSARY, G TUBE FEEDING WELL TOLERATED ON TELEMETRY SR
--- NOTE | 2019-03-21 06:38 | NUR ---
PT WILL BE ENDORSED TO DAY SHIFT NURSE FOR CONTINUE OF CARE
[2019-03-21 06:39] LABS: ANION GAP 10.3 (8-16); CARBON DIOXIDE 29.9 mmol/L (21-32); CHLORIDE 109 mmol/L (98-107); CREATININE 0.8 mg/dL (0.7-1.3); GLUCOSE 155 mg/dL (74-106); POTASSIUM 4.2 mmol/L (3.5-5.1); SODIUM SERUM 145 mmol/L (136-145); UREA NITROGEN, BLOOD 23 mg/dL (7-18)
[2019-03-21 06:44] LABS: PHOSPHORUS 3.2 mg/dL (2.5-4.9)
[2019-03-21 07:04] LABS: HEMATOCRIT 32.4 % (36-52); HEMOGLOBIN 10.5 g/dL (12.0-18.0); LYMPHOCYTES # (AUTO) 0.8 K/uL (2.0-11.5); LYMPHOCYTES % (AUTO) 9.1 % (20.5-51.1); MEAN CORPUSCULAR HEMOGLOBIN 29 pg (27-31); MEAN CORPUSCULAR HGB CONC 32 g/dL (33-37); MEAN CORPUSCULAR VOLUME 91.1 fL (80-94); MONOCYTES # (AUTO) 0.4 K/uL (0.8-1.0); MONOCYTES % (AUTO) 4.1 % (1.7-9.3); NEUTROPHILS # (AUTO) 7.8 K/uL (1.8-7.7); NEUTROPHILS % (AUTO) 86.8 % (42.2-75.2); PLATELET COUNT (AUTO) 134 K/uL (140-450); RED BLOOD CELL COUNT(AUTO) 3.56 MIL/uL (4.20-6.10); RED CELL DISTRIBUTION WIDTH 13.4 % (11.6-13.7)
--- NOTE | 2019-03-21 07:10 | NUR ---
RECEIVED BEDSIDE REPORT FROM MACHINE CHAIN MAKER NURSE FOR CONTINUITY OF CARE. PATIENT CURRENTLY GETTING BREATHING TREATMENT, NO S/S OF SOB NOTED ON ROOM AIR. FLACC-0. IV TO RFA 18G PATENT, INTACT, AND ASYMPTOMATIC, INFUSING IVF WELL. GTUBE IN PLACE WITH TUBE FEEDING RUNNING WELL. BOARD UPDATED. PATIENT IS SR ON TELE MONITOR. ALL SAFETY AND ASPIRATION PRECAUTIONS IN PLACE, BED IN LOWEST POSITION, WITH BRAKES AND ALARM ON, CALL LIGHT WITHIN REACH, WILL CONTINUE TO MONITOR.
[2019-03-21] MEDS: ALBUTEROL SULFATE/IPRATROPIU 3 ML SOL IH SCH ×3 (07:34→19:08)
[2019-03-21] MEDS: BUDESONIDE 0.5 MG/2 ML NEBU INH SCH ×2 (07:34→19:08)
[2019-03-21 08:00] VITALS: BP 134/89
[2019-03-21] MEDS: FERROUS SULFATE 300 MG/5 ML UDC GT SCH (09:21)
[2019-03-21] MEDS: CLOPIDOGREL 75 MG TAB GT SCH (09:21)
[2019-03-21] MEDS: CARBIDOPA/LEVODOPA 25/100 MG 1 TAB GT SCH ×3 (09:21→16:53)
[2019-03-21] MEDS: LANSOPRAZOLE 30 MG CAPDR GT SCH (09:21)
--- NOTE | 2019-03-21 09:21 | NUR ---
ORDERED MEDICATIONS GIVEN VIA GTUBE, GTUBE AUSCULTATED FOR PLACEMENT, 0 ML OF RESIDUAL NOTED. MEDICATIONS GIVEN WITH 120 ML OF WATER. PATIENT TOLERATED IT. ALL NEEDS MET AT THE MOMENT, PATIENT DENIES PAIN. SAFETY PRECAUTIONS IN PLACE, CALL LIGHT WITHIN REACH, WILL CONTINUE TO MONITOR PATIENT.
--- NOTE | 2019-03-21 10:12 | NUR ---
Licensed Funeral Director And Embalmer Note: I called and spoke with Milana from [facility] , per Milana, they can accept patient (even if he needs care home jail care), he may go to room 5b anytime today, accepting physician is . Milana stated they can arrange transportation if needed, Labor Relations Worker Bibiana made aware.
--- NOTE | 2019-03-21 11:11 | NUR ---
PHYSICAL THERAPY IN WITH PATIENT, WILL WAIT FOR THEIR EVALUATION.
[2019-03-21] MEDS: FLUCONAZOLE 200 MG/NS PREMIX 100 ML IV SCH (11:30)
[2019-03-21 12:00] VITALS: BP 128/72
[2019-03-21] MEDS ORDERED: PIPE1PDS26 IV (12:07)
[2019-03-21] MEDS ORDERED: FLUC200T IV (12:07)
--- NOTE | 2019-03-21 14:20 | NUR ---
ORDERED MEDICATIONS GIVEN VIA GTUBE, GTUBE AUSCULTATED FOR PLACEMENT, 0 ML OF RESIDUAL NOTED. MEDICATIONS GIVEN WITH 60 ML OF WATER. PATIENT TOLERATED IT. ALL NEEDS MET AT THE MOMENT, PATIENT DENIES PAIN. ORAL CARE GIVEN. SAFETY PRECAUTIONS IN PLACE, CALL LIGHT WITHIN REACH, WILL CONTINUE TO MONITOR PATIENT.
--- NOTE | 2019-03-21 15:30 | NUR ---
PATIENT VOIDED, PATIENT CLEANED AND REPOSITIONED FOR COMFORT AND TO OFFLOAD PRESSURE KYM. PATIENT AWARE OF TRANSFER. WILL CONTINUE TO MONITOR PATIENT.
[2019-03-21 16:00] VITALS: BP 134/72
--- NOTE | 2019-03-21 16:10 | NUR ---
CALLED [facility], GAVE REPORT TO SHEILA ALLEN, CALLED PATIENT'S JOSE AND UPDATED HER ABOUT PATIENT'S TRANSFER, SHE VERBALIZED UNDERSTANDING.
--- NOTE | 2019-03-21 16:53 | NUR ---
ORDERED MEDICATIONS GIVEN VIA GTUBE, GTUBE AUSCULTATED FOR PLACEMENT, 0 ML OF RESIDUAL NOTED. MEDICATIONS GIVEN WITH 60 ML OF WATER. PATIENT TOLERATED IT. ALL NEEDS MET AT THE MOMENT, PATIENT DENIES PAIN. SAFETY PRECAUTIONS IN PLACE, CALL LIGHT WITHIN REACH, WILL CONTINUE TO MONITOR PATIENT.
[2019-03-21] MEDS: clonazePAM 0.5 MG TAB GT SCH (16:54)
--- NOTE | 2019-03-21 17:44 | NUR ---
CALLED [facility], SPOKE TO SHEILA ALLEN, INFORMED HER ABOUT PATIENT'S DELAY IN DISCHARGE DUE TO TRANSPORTATION. SHE VERBALIZED UNDERSTANDING. PATIENT RESTING IN BED, NO S/S OF SOB OR DISTRESS NOTED. SAFETY AND ASPIRATION PRECAUTIONS IN PLACE, CALL LIGHT WITHIN REACH, WILL CONTINUE TO MONITOR PATIENT.
--- NOTE | 2019-03-21 19:10 | NUR ---
CALLED [facility]. SPOKE TO ALLA, ASKED HER ABOUT TRANSPORT, SHE STATES SHE WILL CALLED [facility] TO CLARIFY INFORMATION. SHE LATER CALLED BACK. STATED THAT TRANSPORT IS ON THEIR WAY. WILL WAIT FOR TRANSPORT.
--- NOTE | 2019-03-21 19:14 | NUR ---
RECEIVED PATIENT ON ROOM AIR PULSE OX SAT 96%. SCHEDULED BREATHING TREATMENTS ADMINISTERED. TOLERATED TREATMENTS WELL WITHOUT ADVERSE SIDE EFFECTS. ORAL CARE DONE POST TX. ORALLY SUCTIONED SMALL AMOUNT OF THICK, WHITE SPONTANEOUSLY EXPECTORATED SECRETIONS. NO ACUTE RESPIRATORY DISTRESS NOTED AT THIS TIME.
--- NOTE | 2019-03-21 19:15 | NUR ---
TRANSPORT ARRIVED TO PICK PATIENT UP TO BE TRANSFERRED TO [facility]. PATIENT IN STABLE CONDITION. ALL BELONGINGS TAKEN WITH PATIENT.
== END 2019-03-21 19:30 | DRG 871 ==
LOC: MED 15:59 → MIC 16:46 → MTU 03-18 00:50
PROVIDERS: ADMIT General Practice; ATTEND General Practice
PROC: 5A09357 Assistance with Respiratory Ventilation, Less than 24 Consecutive Hours, Continuous Positive Airway Pressure (ICD-10-PCS; principal; 2019-03-17)
PROC: 5A09357 Assistance with Respiratory Ventilation, Less than 24 Consecutive Hours, Continuous Positive Airway Pressure (ICD-10-PCS; 2019-03-17)
DX: A41.9 Sepsis, unspecified organism (principal); I21.A1 Myocardial infarction type 2; J96.01 Acute respiratory failure with hypoxia; J69.0 Pneumonitis due to inhalation of food and vomit; E44.1 Mild protein-calorie malnutrition; G93.40 Encephalopathy, unspecified; R65.20 Severe sepsis without septic shock; G90.8 Other disorders of autonomic nervous system; E83.42 Hypomagnesemia; K21.9 Gastro-esophageal reflux disease without esophagitis; D69.6 Thrombocytopenia, unspecified; I35.0 Nonrheumatic aortic (valve) stenosis; E78.5 Hyperlipidemia, unspecified; F02.80 Dementia in other diseases classified elsewhere, unspecified severity, without behavioral disturbance, psychotic disturbance, mood disturbance, and anxiety; F41.9 Anxiety disorder, unspecified; G20 Parkinson's disease; I25.10 Atherosclerotic heart disease of native coronary artery without angina pectoris; J44.9 Chronic obstructive pulmonary disease, unspecified; R13.10 Dysphagia, unspecified; Z85.46 Personal history of malignant neoplasm of prostate; Z93.1 Gastrostomy status; Z95.1 Presence of aortocoronary bypass graft; Z96.651 Presence of right artificial knee joint; Z88.0 Allergy status to penicillin; Z88.8 Allergy status to other drugs, medicaments and biological substances; Z68.24 Body mass index [BMI] 24.0-24.9, adult
CPT/HCPCS: 36415; 70450; 71045; 71275; 76770; 80048; 80053; 80202; 80305; 81003; 82140; 82150; 82550; 83036; 83605; 83690; 83735; 83880; 84100; 84436; 84439; 84443; 84484; 85025; 85610; 85730; 87040; 87070; 87081; 87086; 87205; 92610; 93005; 93880; 94640; 96372; 97110; 97161-GP; 97530; 99285; J0692; J1450; J1644; J2543; J2920; J2930; J3370; J3475; J7030; J7060; J7620; J7626; Q0092; Q9967